=== PATIENT | female | born 1995 | race Two or more races ===

== ENCOUNTER 2024-01-27 14:57 | Emergency (ER) | payer OTHER ==
[~2024-01-27] VITALS: Ht 170.2 cm; Wt 52.2 kg
== END 2024-01-27 17:16 | disposition home or self-care (01) ==
LOC: ER 14:58
DX: T21.14XA Burn of first degree of lower back, initial encounter (principal); X10.1XXA Contact with hot food, initial encounter; Y93.89 Activity, other specified; Y92.89 Other specified places as the place of occurrence of the external cause; Z88.2 Allergy status to sulfonamides